=== PATIENT | male | born 1985 | race Caucasian/White ===

== ENCOUNTER 2017-04-26 21:28 | Emergency (ER) | payer BC, OTHER ==
[~2017-04-26] VITALS: Ht 177.8 cm; Wt 95.5 kg
[2017-04-26 21:28] VITALS: BP 154/91
== END 2017-04-26 22:21 | disposition home or self-care (01) ==
LOC: M ED 21:28
DX: S86.811A Strain of other muscle(s) and tendon(s) at lower leg level, right leg, initial encounter (principal); X50.1XXA Overexertion from prolonged static or awkward postures, initial encounter; Y92.9 Unspecified place or not applicable; Y93.9 Activity, unspecified; Y99.9 Unspecified external cause status; Z88.5 Allergy status to narcotic agent

== ENCOUNTER → 2017-05-01 | Outpatient (REF) | payer OTHER | LOC: M LAB REF 16:45 | PROVIDERS: ATTEND Nurse Practitioner Adult Health | DX: E78.1 Pure hyperglyceridemia (principal) ==

== ENCOUNTER → 2018-05-13 | Outpatient (REF) | payer OTHER ==
[2018-05-14 09:20] LABS: CONTROL LINE HPYORI INT CTR LINE PRESENT; H PYLORI QUALITATIVE IgG NEGATIVE (NEGATIVE)
== END ==
LOC: M LAB REF 16:39
DX: Z20.818 Contact with and (suspected) exposure to other bacterial communicable diseases (principal)

== ENCOUNTER → 2018-05-26 | Outpatient (REF) | payer OTHER | LOC: M SMT 13:45 | DX: Z30.2 Encounter for sterilization (principal) ==

== ENCOUNTER → 2019-05-20 | Outpatient (REF) | payer OTHER ==
[2019-05-22 08:50] LABS: LDL DIRECT 76 mg/dL (0-99)
== END ==
LOC: M LAB REF 12:51
PROVIDERS: ATTEND Nurse Practitioner Adult Health
DX: L40.9 Psoriasis, unspecified (principal); Z11.1 Encounter for screening for respiratory tuberculosis

== ENCOUNTER → 2020-08-10 | Outpatient (REF) | payer OTHER ==
[2020-08-12 08:08] LABS: LDL DIRECT 78 mg/dL (0-99)
== END ==
LOC: M LAB REF 17:13
PROVIDERS: ATTEND Nurse Practitioner Adult Health
DX: E78.1 Pure hyperglyceridemia (principal)

== ENCOUNTER → 2023-01-07 | Outpatient (REF) | payer OTHER ==
[2023-01-09 08:09] LABS: LDL DIRECT 94 mg/dL (0-99)
== END ==
LOC: M LAB REF 17:15
PROVIDERS: ATTEND Nurse Practitioner Adult Health
DX: E78.00 Pure hypercholesterolemia, unspecified (principal); E78.1 Pure hyperglyceridemia

== ENCOUNTER → 2023-03-19 | Outpatient (CLI) | payer BC, OTHER ==
[2023-03-19 11:03] LABS: BASO # 0.1 10^3/uL (0.0-0.2); BASO % 0.9 % (0.0-1.0); EOS # 0.3 10^3/uL (0.0-0.5); EOS % 4.7 % (0.0-3.0); HEMATOCRIT 42.7 % (42.0-52.0); HEMOGLOBIN 14.3 g/dl (13.5-17.5); LYMPH # 2.2 10^3/uL (1.5-5.0); MEAN CORPUSCULAR HGB CONC 33.5 g/dl (32.0-36.5); MEAN CORPUSCULAR VOLUME 89.5 fl (80.0-96.0); MONO # 0.5 10^3/uL (0.0-0.8); MONO % 6.9 % (2.0-8.0); NEUTROPHILS # 3.5 10^3/uL (1.5-8.5); NEUTROPHILS % 54.2 % (36.0-66.0); PLATELET COUNT, AUTOMATED 205 10^3/uL (150-450); RED BLOOD COUNT 4.77 10^6/uL (4.30-6.10); WHITE BLOOD COUNT 6.5 10^3/uL (4.0-10.0)
[2023-03-19 11:25] LABS: ERYTHROCYTE SEDIMENTATION RATE 5 mm/hr (0-15)
[2023-03-19 11:27] LABS: C REACTIVE PROTEIN QUANTITATIV < 0.40 MG/DL (<1.0)
[2023-03-19 11:28] LABS: ALBUMIN 3.8 G/DL (3.2-5.2); ALKALINE PHOSPHATASE 74 U/L (46-116); ALT/SGPT 28 U/L (7.0-40); AST/SGOT 11 U/L (<34); BILIRUBIN,TOTAL 0.9 MG/DL (0.3-1.2); BLOOD UREA NITROGEN 13 MG/DL (9-23); CALCIUM LEVEL 8.7 MG/DL (8.5-10.1); CARBON DIOXIDE LEVEL 26 MMOL/L (20-31); CHLORIDE LEVEL 108 MMOL/L (98-107); COMPLEMENT C3 114.8 MG/DL (84.0-160.0); COMPLEMENT C4 17.8 MG/DL (12-36); CREATININE FOR GFR 1.02 MG/DL (0.70-1.30); GLOMERULAR FILTRATION RATE > 60.0 (>60); GLUCOSE, FASTING 94 MG/DL (60-100); POTASSIUM SERUM 4.1 MMOL/L (3.5-5.1); RHEUMATOID FACTOR QUANT < 3.5 IU/ML (<14); SODIUM LEVEL 139 MMOL/L (136-145); TOTAL PROTEIN 6.4 G/DL (5.7-8.2)
[2023-03-19 11:29] LABS: THYROID STIMULATING HORMONE 2.392 uIU/ML (0.55-4.78)
[2023-03-19 11:30] LABS: THYROGLOBULIN ANTIBODY < 15.0 U/ML (<60.0); THYROID PEROXIDASE ANTIBODY < 28.0 U/ML (<60.0); THYROXINE (T4) 7.6 UG/DL (4.5-10.9); TOTAL T3 111.7 NG/DL (60.0-181.0)
== END ==
LOC: M LAB 09:31
PROVIDERS: ATTEND Allergy & Immunology Allergy
DX: L50.1 Idiopathic urticaria (principal)

== ENCOUNTER → 2023-07-30 | Outpatient (REF) | payer BC, OTHER ==
[2023-07-30 17:43] LABS: HEMATOCRIT 48.3 % (42.0-52.0)
[2023-07-30 18:17] LABS: PERCENT SATURATION 28.6 % (19.7-50.0)
[2023-07-30 18:20] LABS: FERRITIN 232.9 NG/ML (10.5-307.3)
== END ==
LOC: M LAB REF 16:07
PROVIDERS: ATTEND Nurse Practitioner Adult Health
DX: Z84.81 Family history of carrier of genetic disease (principal)

== ENCOUNTER → 2024-01-21 | Outpatient (REF) | payer OTHER ==
[2024-01-21 15:09] LABS: HEPATITIS B CORE ANTIBODY IGM NEGATIVE (NEGATIVE); HEPATITIS C VIRUS ABY INDEX < 0.02 INDEX (<0.8)
== END ==
LOC: M LAB REF 12:28
PROVIDERS: ATTEND Nurse Practitioner Adult Health
DX: R74.01 Elevation of levels of liver transaminase levels (principal)

== ENCOUNTER → 2024-02-11 | Outpatient (CLI) | payer BC ==
[2024-02-11 12:17] LABS: HEMATOCRIT 42.8 % (42.0-52.0)
[2024-02-11 12:26] LABS: FERRITIN 124.3 NG/ML (10.5-307.3); PERCENT SATURATION 23.3 % (19.7-50.0)
== END ==
LOC: M RAD 08:10
PROVIDERS: ATTEND Nurse Practitioner Adult Health
DX: R74.01 Elevation of levels of liver transaminase levels (principal); Z84.81 Family history of carrier of genetic disease

== ENCOUNTER → 2024-04-08 | Outpatient (CLI) | payer BC | LOC: M ADAMS 07:57 | PROVIDERS: ATTEND Nurse Practitioner Adult Health | DX: J06.9 Acute upper respiratory infection, unspecified (principal) ==

== ENCOUNTER → 2024-10-01 | Outpatient (REF) | payer BC ==
[2024-10-01 13:45] LABS: SEMEN APPEARANCE OPAQUE (OPAQUE); SEMEN VISCOSITY LIQUID (LIQUID); SEMEN pH 8.5 (7.0-8.0); WBC CONCENTRATION <=1 M/ml (<=1 M/ml)
== END ==
LOC: M LAB REF 11:29
PROVIDERS: ATTEND Nurse Practitioner Adult Health
DX: Z98.52 Vasectomy status (principal)